=== PATIENT | female | born 1965 | race Caucasian/White ===

== ENCOUNTER 2019-05-20 20:32 | Emergency (ER) | payer OTHER, MEDICARE ==
[~2019-05-20] VITALS: Ht 162.6 cm; Wt 80.0 kg
[~2019-05-20 20:32] MED LIST: ASPI-496 PO; LOSA100T14 PO; METO-282 PO; OXYC-293 PO; TRAZ-96 PO
[2019-05-20 20:50] VITALS: BP 140/100
[2019-05-20] MEDS ORDERED: KETOROLAC 30 MG/1 ML IM ONE (21:30)
[2019-05-20 21:42] LABS: BASOPHILS # (AUTO) 0.03 x10^3/uL (0-0.1); BASOPHILS % (AUTO) 0 % (0-1); EOSINOPHILS # (AUTO) 0.34 x10^3/uL (0-0.4); EOSINOPHILS % (AUTO) 4 % (1-7); LYMPHOCYTES # (AUTO) 3.34 x10^3/uL (1-3.4); LYMPHOCYTES % (AUTO) 37 % (22-44); MD NO; MEAN CORPUSCULAR HGB CONC 34.3 g/dL (32.4-35.8); MEAN CORPUSCULAR VOLUME 93.4 fL (80-100); MEAN PLATELET VOLUME 8.6 fL (7.4-10.4); MONOCYTES # (AUTO) 0.52 x10^3/uL (0.2-0.8); MONOCYTES % (AUTO) 6 % (2-9); NEUTROPHILS % (AUTO) 53 % (42-75); PLATELET COUNT 291 x10^3/uL (130-400)
[2019-05-20] MEDS ORDERED: KETOROLAC 30 MG/1 ML ONE (21:42)
[2019-05-20 21:50] LABS: ALANINE AMINOTRANSFERASE 123 U/L (12-78); ALBUMIN 3.9 g/dL (3.4-5.0); ANION GAP 8 mmol/L (5-15); CALCIUM 8.3 mg/dL (8.5-10.1); CHLORIDE 110 mmol/L (98-107); CREATININE 0.76 mg/dL (0.55-1.02)
[2019-05-20 21:55] LABS: ALKALINE PHOSPHATASE 89 U/L (45-117); BILIRUBIN,TOTAL 1.5 mg/dL (0.2-1.0); TOTAL PROTEIN 7.7 g/dL (6.4-8.2); TROPONIN I < 0.015 ng/mL (0.000-0.045)
--- NOTE | 2019-05-20 22:45 | NUR ---
PT BACK FROM [place]. RESTING COMFORTABLY.
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
== END 2019-05-21 00:03 ==
LOC: ED 23:20
DX: G89.11 Acute pain due to trauma (principal); M79.672 Pain in left foot; G57.62 Lesion of plantar nerve, left lower limb; R07.89 Other chest pain; R16.0 Hepatomegaly, not elsewhere classified; K76.0 Fatty (change of) liver, not elsewhere classified; E66.09 Other obesity due to excess calories; R10.13 Epigastric pain; R10.11 Right upper quadrant pain; X50.1XXA Overexertion from prolonged static or awkward postures, initial encounter; Y93.89 Activity, other specified; Y92.410 Unspecified street and highway as the place of occurrence of the external cause; Y99.8 Other external cause status
CPT/HCPCS: 36415; 71046; 73630; 76700; 80053; 84484; 85025; 93005; 96372; 99284; J1885

== ENCOUNTER 2019-07-03 11:54 | Emergency (ER) | payer OTHER, MEDICARE ==
[~2019-07-03] VITALS: Ht 167.6 cm; Wt 79.1 kg
[2019-07-03 13:01] VITALS: BP 181/103
--- NOTE | 2019-07-03 13:45 | NUR ---
PT TO ROOM FROM [facility], AMBULATED WITH STEADY GAIT
== END 2019-07-03 14:49 | disposition home or self-care (01) ==
LOC: ED 14:47
DX: S62.667A Nondisplaced fracture of distal phalanx of left little finger, initial encounter for closed fracture (principal); I10 Essential (primary) hypertension; Y08.89XA Assault by other specified means, initial encounter; Y93.89 Activity, other specified; Y92.009 Unspecified place in unspecified non-institutional (private) residence as the place of occurrence of the external cause; Y99.8 Other external cause status
CPT/HCPCS: 29130; 99283

== ENCOUNTER 2019-11-05 20:31 | Emergency (ER) | payer OTHER, MEDICARE ==
[~2019-11-05] VITALS: Ht 162.6 cm; Wt 78.5 kg
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
[2019-11-05] MEDS ORDERED: METHOCARBAMOL 750 MG TABLET ONE (21:00)
[2019-11-05] MEDS ORDERED: METHOCARBAMOL 750 MG TABLET PO ONE (21:00)
[2019-11-05 22:08] VITALS: BP 128/73
== END 2019-11-05 22:37 | disposition home or self-care (01) ==
LOC: ED 21:01
DX: S16.1XXA Strain of muscle, fascia and tendon at neck level, initial encounter (principal); S39.012A Strain of muscle, fascia and tendon of lower back, initial encounter; S29.012A Strain of muscle and tendon of back wall of thorax, initial encounter; M62.830 Muscle spasm of back; M51.34 Other intervertebral disc degeneration, thoracic region; I10 Essential (primary) hypertension; Y04.8XXA Assault by other bodily force, initial encounter; Y93.89 Activity, other specified; Y92.009 Unspecified place in unspecified non-institutional (private) residence as the place of occurrence of the external cause; Y99.8 Other external cause status
CPT/HCPCS: 72072; 72110; 72125; 99284